=== PATIENT | female | born 2000 | race Caucasian/White ===

== ENCOUNTER 2024-08-13 23:25 | Emergency (ER) | payer MEDICAID ==
[2024-08-13 23:51] LABS: BASE EXCESS VENOUS -4.7 mm/L; BICARBONATE,VENOUS 21.8 mmol/L; CARBOXYHEMOGLOBIN 1.5 % (0.0-1.6); METHEMOGLOBIN 0.6 %; O2 SATURATION VENOUS 56.5; OXYHEMOGLOBIN 55.3 %; PCO2 VENOUS 47.3 mm/Hg; PH,VENOUS 7.285 (7.350-7.450); PO2 VENOUS 40.7 mm/Hg; TOTAL HEMOGLOBIN 15.8 g/dL (12.0-16.0)
[2024-08-14] LABS: BLOOD UREA NITROGEN,BUN 10 mg/dL (7-18); CALCIUM 9.7 mg/dL (8.5-10.1); CARBON DIOXIDE,CO2 25 mmol/L (21-32); CHLORIDE,CL 101 mmol/L (100-108); CREATININE 0.9 mg/dL (0.6-1.0); ESTIMATED GFR 92 mL/min (>60); POTASSIUM,K 4.5 mmol/L (3.6-5.2); SODIUM,NA 137 mmol/L (140-148)
[2024-08-14 00:01] LABS: ANION GAP 15.5 mmol/L (5.0-14.0); GLUCOSE RANDOM 465 mg/dL (74-106)
[2024-08-14 00:05] LABS: BASOPHILS ABSOLUTE AUTO 0.05 K/uL (0.00-0.10); BASOPHILS PERCENT AUTO 0.4 % (0.1-1.3); EOSINOPHILS ABSOLUTE AUTO 0.08 K/uL (0.00-0.40); EOSINOPHILS PERCENT AUTO 0.7 % (0.0-5.4); HEMATOCRIT 46.3 % (34.3-46.0); HEMOGLOBIN 15.5 g/dL (11.2-15.5); IMMATURE GRAN ABSOLUTE AUTO 0.07 K/uL (0.00-0.23); IMMATURE GRAN PERCENT AUTO 0.6 % (0.0-0.7); LYMPHOCYTES ABSOLUTE AUTO 2.31 K/uL (0.8-3.3); LYMPHOCYTES PERCENT AUTO 20.6 % (11.4-47.7); MEAN CORPUSCULAR HEMOGLOBIN 27.9 pg (31.6-35.5); MEAN CORPUSCULAR HGB CONC 33.5 g/dL (31.6-35.5); MEAN CORPUSCULAR VOLUME 83.4 fL (81.4-99.0); MONOCYTES ABSOLUTE AUTO 0.78 K/uL (0.20-0.90); MONOCYTES PERCENT AUTO 6.9 % (3.3-12.6); NEUTROPHILS ABSOLUTE AUTO 7.95 K/uL (1.0-7.6); NEUTROPHILS PERCENT AUTO 70.8 % (40.0-78.1); PLATELET COUNT,PLT 328 K/uL (130-375); RED BLOOD CELL COUNT 5.55 M/uL (3.77-5.24); WHITE BLOOD CELL COUNT,WBC 11.2 K/uL (3.2-11.0)
== END 2024-08-14 00:46 | disposition home or self-care (01) ==
LOC: JP.ED 23:25
DX: E11.65 Type 2 diabetes mellitus with hyperglycemia (principal); I10 Essential (primary) hypertension; F17.200 Nicotine dependence, unspecified, uncomplicated; Z88.1 Allergy status to other antibiotic agents; Z88.5 Allergy status to narcotic agent; Z79.4 Long term (current) use of insulin; Z79.84 Long term (current) use of oral hypoglycemic drugs; Z79.899 Other long term (current) drug therapy
CPT/HCPCS: 36415; 80048; 82009; 82803; 85025; 99284